=== PATIENT | male | born 1995 | race Caucasian/White ===

== ENCOUNTER 2020-06-18 23:28 | Emergency (ER) | payer SELFPAY ==
[2020-06-19] MEDS ORDERED: LODINE CAP 300300 MG PO (00:51)
== END 2020-06-19 02:02 | disposition home or self-care (01) ==
LOC: ER1 23:28
DX: S90.32XA Contusion of left foot, initial encounter (principal); I10 Essential (primary) hypertension; F17.290 Nicotine dependence, other tobacco product, uncomplicated; Z88.0 Allergy status to penicillin; W22.8XXA Striking against or struck by other objects, initial encounter; Y92.009 Unspecified place in unspecified non-institutional (private) residence as the place of occurrence of the external cause
CPT/HCPCS: 73610; 73630; 99283

== ENCOUNTER 2020-10-04 13:58 | Emergency (ER) | payer BC ==
[~2020-10-04 13:58] MED LIST: LODINE CAP 300300 MG PO
[2020-10-04 16:12] LABS: HEMOGLOBIN 15.9 gm/dl (14.0-17.5); RED BLOOD COUNT 4.98 M/UL (4.20-5.50)
[2020-10-04 16:31] LABS: BUN/CREATININE RATIO 9 (0-10)
[2020-10-04] MEDS ORDERED: ZOFRAN ODT 4 MG4 MG PO (17:39)
== END 2020-10-04 17:50 | disposition home or self-care (01) ==
LOC: ER1 13:58
PROVIDERS: Physician Assistant
DX: R09.81 Nasal congestion (principal); R11.2 Nausea with vomiting, unspecified; L55.1 Sunburn of second degree; Z20.822 Contact with and (suspected) exposure to COVID-19; Z88.0 Allergy status to penicillin; Z79.899 Other long term (current) drug therapy
CPT/HCPCS: 0240U; 80053; 82550; 82553; 85025; 99283

== ENCOUNTER 2020-10-11 11:45 | Emergency (ER) | payer BC ==
[~2020-10-11 11:45] MED LIST changes: +ZOFRAN ODT 4 MG4 MG PO
[2020-10-11 12:43] LABS: HEMOGLOBIN 15.4 gm/dl (14.0-17.5); RED BLOOD COUNT 4.83 M/UL (4.20-5.50); WHITE BLOOD COUNT 5.7 K/UL (4.5-11.0)
[2020-10-11 13:11] LABS: BUN/CREATININE RATIO 11 (0-10)
== END 2020-10-11 20:30 | disposition home or self-care (01) ==
LOC: ER1 11:45
PROVIDERS: Physician Assistant
DX: S06.381A Contusion, laceration, and hemorrhage of brainstem with loss of consciousness of 30 minutes or less, initial encounter (principal); W06.XXXA Fall from bed, initial encounter
CPT/HCPCS: 71260; 80053; 82550; 82553; 83874; 84484; 85025; 85379; 93005; 99284; J7040; Q9967

== ENCOUNTER 2021-07-18 09:39 | Emergency (ER) | payer BC ==
[2021-07-18 13:01] LABS: BUN/CREATININE RATIO 14 (0-10)
== END 2021-07-18 14:04 | disposition home or self-care (01) ==
LOC: ER1 09:39
PROVIDERS: Emergency Medicine
DX: I10 Essential (primary) hypertension (principal); R00.2 Palpitations; Z88.0 Allergy status to penicillin
CPT/HCPCS: 71045; 80048; 80307; 83735; 84439; 84443; 93005; 99285